=== PATIENT | male | born 1950 | race Caucasian/White ===

== ENCOUNTER → 2019-02-15 | Outpatient (CLI) | payer MEDICARE ==
--- NOTE | 2019-02-15 14:39 | CT ---
EXAMINATION TYPE: CT sinus w con DATE OF EXAM: 02/15/2019 COMPARISON: None HISTORY: Chronic sinusitis CT DLP: 655.4 mGycm Automated exposure control for dose reduction was used. CONTRAST: CT scan of the facial bones is performed with IV Contrast, patient injected with 80mL mL of Isovue 30 0. TECHNIQUE: CT scan of the sinuses is performed without contrast, axial images are obtained, coronal r eformatted images are also reviewed. FINDINGS: There is near complete opacification of the ethmoid air cells. Moderate to severe right-lopez ed mucosal thickening of the maxillary sinus and moderate left also thickening. Occlusion of the osti omeatal complex bilaterally. Moderate changes involving the sphenoid sinus and frontal sinus. No air- fluid levels. Intraorbital structures are symmetric. Visualized oropharynx and nasopharynx are symmetric. There is a nasal septal deviation. IMPRESSION: 1. Moderate to severe pansinusitis with most marked findings involving the ethmoid air cells.
== END ==
LOC: RADCTMAIN 13:30
PROVIDERS: ATTEND Physician Assistant
DX: J32.4 Chronic pansinusitis (principal)
CPT/HCPCS: 82565; 84520; 36415; 70487; Q9967

== ENCOUNTER 2019-05-01 09:24 | Day surgery (SDC) | payer MEDICARE ==
[2019-04-29 14:20] VITALS: BMI 30.5
[~2019-05-01 09:24] MED LIST: DEXAMETHASONE SOD PHOSPHATE 10 MG/ML 1 ML VIAL IV ONE; DEXAMETHASONE SOD PHOSPHATE 4 MG/ML 1 ML VIAL IV ONE; FAMOTIDINE 20 MG/2 ML VIAL IV ONE; LACTATED RINGERS 1,000 ML IV SCH; LIDOCAINE 1% 20 ML VIAL (10MG/ML) FOR IV START INTRADERMA PRN; ONDANSETRON 4 MG/2 ML VIAL IVP ONE
[2019-05-01] MEDS: OXYMETAZOLINE 0.05% NASL SPRAY 1 SPRAY BOTTLE NASAL ONE ×5 (09:58→10:23)
[2019-05-01] MEDS ORDERED: NEOSTIGMINE 1 MG/ML 10 ML VIAL ONE (10:44)
[2019-05-01] MEDS ORDERED: PROPOFOL 10 MG/ML 20 ML VIAL IV ONE (10:44)
[2019-05-01] MEDS ORDERED: fentaNYL (PF) 50 MCG/ML 2 ML AMP ONE (10:44)
[2019-05-01] MEDS ORDERED: ROCURONIUM BROMIDE 10 MG/ML 10 ML VIAL IV ONE (10:44)
[2019-05-01] MEDS ORDERED: LIDOCAINE 1% INJ 10MG/ML (20 ML MDV) ONE (10:44)
[2019-05-01] MEDS ORDERED: PHENYLEPHRINE-0.9% NACL SYG 1 MG/10 ML SYRINGE ONE (10:44)
[2019-05-01] MEDS ORDERED: MIDAZOLAM 2 MG/2 ML VIAL ONE (10:44)
[2019-05-01] MEDS ORDERED: GLYCOPYRROLATE 0.2 MG/ML 2 ML VIAL ONE (10:44)
[2019-05-01] MEDS ORDERED: BACITRACIN 500 UNIT/GM OINT 28.4 GM TUBE TOPICAL ONE ×2 (11:02→12:01)
[2019-05-01] MEDS ORDERED: LIDOCAINE 1%-EPI 1:100,000 20 ML VIAL SUBMUCOSAL ONE ×3 (11:02→11:08)
[2019-05-01] MEDS ORDERED: LACTATED RINGERS 1,000 ML IV ONE (11:37)
--- NOTE | 2019-05-01 12:18 | P.OP ---
Date of Procedure: 05/01/19 Preoperative Diagnosis: Deviated nasal septum Inferior turbinate hypertrophy Chronic sinusitis Postoperative Diagnosis: Same Procedure(s) Performed: Septoplasty Outfractured and submucous resection of the inferior turbinates Bilateral endoscopic sinus surgery including bilateral maxillary antrostomy with removal of tissue from the maxillary sinuses, bilateral anterior and posterior ethmoidectomy, bilateral balloon sinus plasty of the frontal and sphenoid sinuses with exploration Anesthesia: GENARO Surgeon: Glenroy Hoover Estimated Blood Loss (ml): 5 Pathology: other (Nasal septal bone and cartilage and sinus contents) Condition: stable Disposition: PACU Indications for Procedure: This 68-year-old white male whose had difficulties with chronic nasal airway obstruction congestion recurrent and chronic sinus with CT showing evidence of chronic sinusitis throughout his sinuses Operative Findings: Nasal septum deviated to the right with inferior turbinate hypertrophy bilaterally. Mucosal thickening throughout the ethmoid sinuses. Small polyps i n the maxillary sinuses which were removed. There was mucosal thickening in the frontal and sphenoid sinus bilateral also Description of Procedure: The patient was brought into the operative suite and placed in a supine position. The patient underwent induction of general anesthesia with oral endotracheal intubation without difficulty. The patient was prepped and draped in the usual aseptic fashion with the orbits in the operating field for monitoring to the case and the computed tomography scan was on the computer screen for review throughout the case. 1% lidocaine with 1 :100,000 epinephrine was infused submucosally into both sides of the nasal septum as well as the lateral nasal wall and anterior tips of the middle turbinates. While this was taking vasoconstrictive effect the inferior turbinates were infractured with Reeves elevator and partial submucous resection of the inferior turbinates was performed with a portion of the submucosal soft tissue and the inferior turbinate bone removed with Coblation device. The inferior turbinates were then outfractured with the Reeves elevator. A left hemitransfixion incision was then made with the mucoperichondrial and mucoperiosteal flap on the left elevated. The bony cartilaginous junction was disarticulated and the mucoperiosteal flap on the right was elevated. Bony nasal septal deformities were removed with Shawanda forceps and an inferior cartilaginous strip was removed leaving a full 1.5 cm caudal strut. Checking intranasally this corrected the nasoseptal deformities and the hemitransfixion incision was closed with a running 4-0 chromic suture. Full 0 endoscopic examination is performed bilaterally. Beginning on the left, the middle turbinate was medialized. The maxillary ostium was located with a ballpoint probe and an infundibulotomy was performed followed by uncinectomy. The maxillary antrostomy was enlarged at the expense of the anterior and posterior fontanelle taking care anteriorly not to injure the lacrimal bone. The maxillary sinus was evaluated with 30 and 70 endoscope .[Abnormal appearing tissue was removed from the maxillary sinus]. Anterior and posterior ethmoidectomy were then performed from anterior to posterior to the level of the skull base. The roof of the anterior ethmoid air cells were then cleaned from posterior to anterior using up-biting Blakesley forceps. A balloon sinuplasty of the frontal sinus was then performed using the entellus light guided technique . The frontal sinus was then explored with 30 endoscope. A balloon sinus plasty was then performed of the sphenoid sinus using entellus light guided technique . The sphenoid sinus was then explored with 0 endoscope.[Abnormal tissue was removed from the sphenoid sinus]. Attention was then turned to the right where the procedures were followed as they had been on the left. [Nasopore nasal dressing was placed in the middle meatus bilaterally under direct visualization]. Bilateral Kwan airway splints coated with bacitracin ointment were placed and sutured transseptally with a 4-0 nylon suture. The patient was suctioned in oral gastric fashion and was allowed to emerge from general anesthesia having tolerated procedure well and was extubated in the operating suite and transferred to the postoperative recovery area in satisfactory condition.
[2019-05-01 12:28] VITALS: TEMP 97.4
[2019-05-01] MEDS: HYDROmorphone 0.5 MG/0.5 ML SYRINGE IVP PRN ×4 (12:40→12:55)
[2019-05-01] MEDS ORDERED: fentaNYL (PF) 50 MCG/ML 2 ML AMP IVP ONE (13:08)
[2019-05-01 13:31] VITALS: RESP 20
[2019-05-01 13:45] VITALS: BP 128/87; PULSE 76
== END 2019-05-01 14:21 | disposition home or self-care (01) ==
LOC: OR 09:24
PROVIDERS: ATTEND Otolaryngology
DX: J34.2 Deviated nasal septum (principal); J34.3 Hypertrophy of nasal turbinates; J32.8 Other chronic sinusitis; I10 Essential (primary) hypertension; E78.5 Hyperlipidemia, unspecified; M19.90 Unspecified osteoarthritis, unspecified site; F41.9 Anxiety disorder, unspecified; F32.9 Major depressive disorder, single episode, unspecified; E78.00 Pure hypercholesterolemia, unspecified; Z85.46 Personal history of malignant neoplasm of prostate; Z79.899 Other long term (current) drug therapy; Z79.891 Long term (current) use of opiate analgesic; Z79.51 Long term (current) use of inhaled steroids; Z79.2 Long term (current) use of antibiotics; Z87.891 Personal history of nicotine dependence; Z92.3 Personal history of irradiation; Z92.21 Personal history of antineoplastic chemotherapy
CPT/HCPCS: 88305; 88300; 30520; 30140; 31267; 31298; 61782; C1726; J2250; J1100; J2710; J2405; J2001; J3010; J2370; J2704; J1170

== ENCOUNTER → 2019-06-17 | Outpatient (CLI) | payer MEDICARE ==
--- NOTE | 2019-06-17 16:59 | MR ---
EXAMINATION TYPE: MR brain and iac wo/w con DATE OF EXAM: 06/17/2019 COMPARISON: CT sinuses February 15, 2019 HISTORY: prev nasal surgery with drainage issues TECHNIQUE: Multiplanar, multisequence images of the brain and brainstem along with internal auditory canals are all performed without and with IV contrast, utilizing 11 mL intravenous Gadavist . FINDINGS: Diffusion weighted images demonstrate no evidence of a recent infarct or other diffusion ab normality. There is no worrisome extra-axial fluid collection. There is mild ventricular and sulcal prominence. Occasional tiny focus of T2 hyperintensity are scattered throughout the white matter bila terally. Midline structures demonstrate normal morphology. The craniocervical junction appears within normal limits. Post contrast images demonstrate no abnormal enhancement. The dural venous sinuses appear pa tent. There is mild to moderate mucosal thickening left frontal sinus slightly more prominent than pr ior sinus CT. Vkrt-bd-yffojerm mucosal thickening ethmoid sinuses bilaterally improved from prior CT, interval sinus surgery suspected. Mild to moderate mucosal thickening in the maxillary sinuses impro chloe from prior CT. Mild to minimal mucosal thickening bilateral sphenoid sinuses improved from prior CT. Some patchy fluid signal in the bilateral petrous apexes and right mastoid air cells. The vestibuloco chlear complexes are symmetric and felt within normal limits. No suspicious enhancing cerebellopontin e angle mass is identified bilaterally. IMPRESSION: 1. Possible mild right-sided mastoiditis and bilateral petrous apicitis, correlate clinically for poi nt tenderness at these levels bilaterally. 2. Improved paranasal sinus disease after interval surgery. Chronic changes remain present without ac susan sinusitis currently. 3. Mild diffuse age-related cerebral atrophy and mild to minimal chronic small vessel ischemic change is felt present.
== END | disposition home or self-care (01) ==
LOC: RADMRIMAIN 15:41
PROVIDERS: ATTEND Nurse Practitioner Family
DX: G31.1 Senile degeneration of brain, not elsewhere classified (principal); I67.82 Cerebral ischemia
CPT/HCPCS: 70553; A9585

== ENCOUNTER → 2020-08-12 | Outpatient (CLI) | payer MEDICARE ==
--- NOTE | 2020-08-12 12:22 | CONS ---
CONSULTATION DATE OF SERVICE: 08/12/2020 A 69-year-old gentleman had been evaluated [facility] for possible obstructive sleep apnea-hypopnea syndrome. HISTORY OF PRESENT ILLNESS/SLEEP-WAKE EVALUATION: Patient's usual sleep schedule from 10 or 11 p.m. until 3 to 4 a.m. Sometimes he has problems with falling asleep, although no TV in bedroom. He usually sleeps on the side position. The patient sleeps by himself so no clear information about snoring and breathing during the sleep. No history of hypnagogic hallucinations, sleep paralysis or cataplexy. The patient takes one nap around 2 to 3 p.m., does not feel refreshed after nap. Does not seem any vivid dream during naps. [place] Sleepiness Scale is 7. PAST MEDICAL HISTORY: Positive for prostate CA, status post prostatectomy in 2007 and several years after that radiation therapy presently PSA in very low range; hypertension, arthritis, headaches, possible COVID-19 in 2018. PAST SURGICAL HISTORY: Prostatectomy, bilateral surgery for rotator cuff, for the fracture of right hip, nasal surgery for sinus problem in May 2019. SOCIAL HISTORY: Smoked about a half pack a day for 30 years. Alcohol consumption none. MEDICATIONS: Atorvastatin 40 mg once a day, venlafaxine 75 mg once a day, enalapril 10-25 once a day, trazodone 50 mg once a day, hydrocodone 1-2 on p.r.n. basis for the pain. FAMILY HISTORY: Hypertension. REVIEW OF SYSTEMS: Feeling tiredness and sleepiness during the day, sexual dysfunction, and sometimes a urine leak. No fevers. No double vision. No recent chest pain. No shortness of breath. No abdominal pain. No bleeding episodes. No blood in the urine. No seizure episodes. PHYSICAL EXAMINATION: GENERAL: A gentleman without distress. VITAL SIGNS: BP 139/84, HR 74, RR 12, height 6 feet 2-1/2 inches, weight 250 pounds, body mass index 31.6, temperature 97.5, oxygen saturation at room air 96%. HEENT: PERRLA, EOMI. Oropharynx wide pillars, big uvula. Position of soft palate around 2, but small oropharyngeal air space, wide neck 18 inches in circumference. NECK: Wide neck, 18 inches in circumference. LUNGS: Clear to percussion and to auscultation. Good air exchange. No wheezing or rhonchi. HEART: S1, S2 regular. No murmurs, gallops, or rubs. ABDOMEN: Slightly obese. EXTREMITIES: No clubbing or cyanosis. CASING TESTER: Awake, alert, and oriented X3. Cranial nerves 2 to 7 intact. There is no fasciculation or atrophy. noted. No focal deficits observed. IMPRESSION: 1. Tiredness and sleepiness during the day. Small oropharyngeal air space, wide neck. The patient sleeps by himself no information about snoring, obstructive sleep apnea-hypopnea syndrome. 2. Body mass index 31.6. 3. Hypertension. 4. Hyperlipidemia. 5. History of prostate cancer, status post prostatectomy and later radiation therapy. 6. Smoker for about 20 pack years. 7. Status post bilateral surgery for rotator cuff problems. 8. Status post nasal surgery for sinusitis. 9. Status post possible COVID-19 pneumonia in 2019 with absence of taste and smell. 10.Insomnia with difficulties to initiate sleep psychophysiological and also possibly secondary to depression. 11.Sexual dysfunction. PLAN: 1. Polysomnography for evaluation of patient's breathing during sleep. 2. CPAP/BiPAP titration if sleep study confirms obstructive sleep apnea-hypopnea syndrome. 3. Preferable position during sleep on the side. 4. No driving if patient feels any sleepiness. 5. I will see patient for follow up visit to explain results of testing and following plan. Thank you very much for referring this patient for consultation. Sincerely, Nikolai Culp MD, PhD, FAASM Diplomat of [employer] [facility] MMODL / IJN: [id number] /
== END ==
LOC: SLEEP 09:58
PROVIDERS: ATTEND Internal Medicine
DX: G47.33 Obstructive sleep apnea (adult) (pediatric) (principal); E78.5 Hyperlipidemia, unspecified; N53.9 Unspecified male sexual dysfunction; I10 Essential (primary) hypertension; Z85.46 Personal history of malignant neoplasm of prostate; Z90.79 Acquired absence of other genital organ(s); Z98.890 Other specified postprocedural states; Z68.31 Body mass index [BMI] 31.0-31.9, adult
CPT/HCPCS: 99211

== ENCOUNTER → 2022-11-24 | Outpatient (CLI) | payer MEDICARE ==
--- NOTE | 2022-11-24 08:40 | CTL ---
EXAMINATION TYPE: CT Low Dose Lung DATE OF EXAM ORDERED: 11/24/2022 HISTORY: Z12.2 ,F17.210 NICOTINE DEPENDENCE, CIGARETTES, UN. Current smoker, 55 pack year history. Rabia ng cancer screening CT DLP: 89.[address] CTDI: 2.4 mGy Automated exposure control for dose reduction was used. SCREENING VISIT: First screening visit COMPARISON: None TECHNIQUE: Low dose computed tomography scan was performed through the chest at 1 mm thick sections a nd reconstructed images in multiple planes at 1 mm and [address] DIAGNOSTIC QUALITY: Satisfactory FINDINGS: LUNG NODULES: 4 mm nodule along the left major fissure which may represent an intrafissural lymph nod e (series 4, image 134). Additional 3 mm nodule along the left major fissure which may represent an i ntrafissural lymph node (series 4, image 171). Left lateral lower lobe 3 mm pulmonary nodule (series 4, image 211). 3 mm nodule along the right minor fissure which may represent an intrafissural lymph n ode (series 4, image 178). Additional 4 mm nodule along the right major fissure which may represent i ntrafissural lymph node (series 4, image 148). LUNGS: COPD: Severity: Mild Fibrosis: Severity: None Lymph nodes: None Other findings: None RIGHT PLEURAL SPACE: Effusion: None Calcification: None Thickening: None Pneumothorax: None LEFT PLEURAL SPACE: Effusion: None Calcification: None Thickening: None Pneumothorax: None HEART: Heart Size: Normal Coronary Calcification: Moderate Pericardial Effusion: None OTHER FINDINGS: Upper abdomen: None Bony thorax: None Supraclavicular region: None Other: None IMPRESSION: Few nodules measuring up to 4 mm. A few of these may represent intrafissural lymph nodes. CT LUNG RAD AND CT CHEST RECOMMENDATION: Lung-Rad 2 Benign Appearance or Behavior: Continue annual sc reening with LDCT in 12 months. S Modifier (other clinically significant findings): None
== END | disposition home or self-care (01) ==
LOC: RADCTMAIN 08:00
PROVIDERS: ATTEND Family Medicine
DX: Z12.2 Encounter for screening for malignant neoplasm of respiratory organs (principal); F17.210 Nicotine dependence, cigarettes, uncomplicated; R91.8 Other nonspecific abnormal finding of lung field
CPT/HCPCS: 71271

== ENCOUNTER → 2024-09-19 | Outpatient (CLI) | payer MEDICARE ==
--- NOTE | 2024-09-19 11:33 | CT ---
EXAMINATION TYPE: CT right knee - SHARMAINE Protocol DATE OF EXAM: 09/19/2024 10:56 AM COMPARISON: None. CLINICAL INDICATION: Male, 74 years old with history of M17.11 UNILATERAL PRIMARY OSTEOARTHRITIS, RIG HT KN; PHH, pre-op right total knee, pain, TECHNIQUE: Axial images were obtained of the bilateral hips, knee and bilateral ankles: CT right kne e - SHARMAINE Protocol, Additional coronal and sagittal reformatted images and soft tissue and bone window were obtained for review of the bilateral hips, knee and bilateral ankles. Contrast used: mL of , (None if empty) Oral contrast used: (None if empty) CT DLP: 666 mGycm, Automated exposure control for dose reduction was used. FINDINGS: The visualized portion of the hips demonstrate mild osteoarthrosis changes with osteophyte formation of the acetabulum. No acute intrapelvic process. The bony structures of the pelvis are intact. The visualized knee demonstrates osteophyte formation of the tibial plateau, the patella and femoral condyles. There is joint space narrowing and subchondral sclerosis worse in the medial joint compart ment. No evidence of fracture. The visualized ankles demonstrates multifocal osteoarthrosis changes with osteophyte formation and mi ld joint space narrowing. No evidence of fractures. Other: Surgical changes of the prostate gland with prostatectomy. IMPRESSION: Moderate osteoarthrosis changes of the knee. [facility], , 09/19/2024 11:31 AM
== END | disposition home or self-care (01) ==
LOC: RADCTMAIN 10:25
PROVIDERS: ATTEND Orthopaedic Surgery
DX: Z01.818 Encounter for other preprocedural examination (principal); M17.11 Unilateral primary osteoarthritis, right knee

== ENCOUNTER → 2024-10-08 | Outpatient (CLI) | payer MEDICARE ==
--- NOTE | 2024-10-08 15:16 | CTL ---
EXAMINATION TYPE: CT Low Dose Lung DATE OF EXAM: 10/08/2024 9:04 AM COMPARISON: 11/24/2022. CLINICAL INDICATION: Male, 74 years old with history of Z12.2, F17.210 NICOTINE DEPENDENCE, CIGARETTE S, UN; current smoker, 1 pack a day for 40 years, history of tobacco use. TECHNIQUE: Multiple axial non-contrast scans were obtained from approximately the lung apices through the upper abdomen. Coronal and sagittal reformatted images were obtained. Low dose technique was uti lized. MIP were created on a separate workstation and submitted for review. CT DLP: 97.2 mGycm, Automated exposure control for dose reduction was used. CT Contrast: Contrast used: None Oral contrast used: None FINDINGS: Lack of intravenous contrast and low dose technique limits the evaluation of the vascular and soft ti ssue structures. LUNGS: No evidence of pulmonary fibrosis. No evidence of focal consolidation, pneumothorax or pleural effusion. Centrilobular emphysema changes. Nodules: RUL: None. RML: None. RLL: None. STEPHANE: None. LLL: 3 mm series 5 image 45; intrafissural lymph node image 28. AIRWAY: Patent and unremarkable. HEART: Size within normal limits. Moderate coronary artery calcifications present. MEDIASTINUM: No gross evidence of adenopathy. VASCULATURE: No aortic aneurysm. MUSCULOSKELETAL: No acute osseous abnormalities SOFT TISSUES/LYMPH NODES: Unremarkable. LOWER NECK: No significant findings. UPPER ABDOMEN: No significant findings. IMPRESSION: 1. No clinically significant pulmonary nodules. 2. Mild emphysema. CT LUNG RAD AND CT CHEST RECOMMENDATION: Lung-Rad 2 Benign Appearance or Behavior: Continue annual sc reening with LDCT in 12 months. S Modifier (other clinically significant findings): None Recommend smoking cessation (if current smoker), or continuation of smoking cessation (if prior smoke r). Annual screening for lung cancer with low-dose computed tomography is recommended in adults ages 55 to 77 years who have a 30 pack-year smoking history and currently smoke or have quit within the pa st 15 years. Screening should be discontinued once a person has not smoked for 15 years or develops a health problem that substantially limits life expectancy or the ability or willingness to have curat srini lung surgery. Lung rads 2021 [email or web address] [facility], , 10/08/2024 3:14 PM
== END | disposition home or self-care (01) ==
LOC: RADCTMAIN 08:41
PROVIDERS: ATTEND Family Medicine
DX: Z12.2 Encounter for screening for malignant neoplasm of respiratory organs (principal); F17.210 Nicotine dependence, cigarettes, uncomplicated; J43.2 Centrilobular emphysema
CPT/HCPCS: 71271

== ENCOUNTER 2024-10-22 05:33 | Day surgery (SDC) | payer MEDICARE ==
[2024-10-17 15:23] VITALS: BMI 30.5
[2024-10-22] MEDS ORDERED: TRANEXAMIC 1,000 MG/100ML-NACL 1,000 MG in SALINE 1 100ML.BAG IV PRN (06:00)
[2024-10-22] MEDS ORDERED: ONDANSETRON 4 MG/2 ML VIAL IVP PRN ×2 (06:00→08:55)
[2024-10-22] MEDS ORDERED: TRANEXAMIC 1,000 MG/100ML-NACL 1,000 MG in SALINE 1 100ML.BAG IVPB PRN (06:00)
[2024-10-22] MEDS ORDERED: oxyCODONE ER 10 MG TAB.ER.12H PO PRN (06:00)
[2024-10-22] MEDS: DOCUSATE 100 MG CAP PO PRN (06:03)
[2024-10-22] MEDS: ACETAMINOPHEN TAB 500 MG TAB PO PRN (06:03)
[2024-10-22] MEDS: IV FLUID CONTINUATION 1,000 ML IV ONE ×2 (06:30→10:15)
[2024-10-22] MEDS: LACTATED RINGERS 1,000 ML IV SCH (06:30)
[2024-10-22] MEDS: FAMOTIDINE 20 MG/2 ML VIAL IVP PRN (06:31)
[2024-10-22] MEDS: ONDANSETRON 4 MG/2 ML VIAL IVP ONE (06:31)
[2024-10-22] MEDS: KETOROLAC 15 MG/ML 1 ML VIAL IVP PRN (06:31)
[2024-10-22] MEDS: MIDAZOLAM 2 MG/2 ML VIAL IV ONE (06:32)
[2024-10-22] MEDS: DEXAMETHASONE SOD PHOSPHATE 10 MG/ML 1 ML VIAL IV PRN (06:41)
[2024-10-22] MEDS: VANCOMYCIN 1,500 MG in SODIUM CHLORIDE 0.9% 500 ML 500 ML IVPB PRN (06:47)
[2024-10-22] MEDS: fentaNYL (PF) 50 MCG/ML 2 ML AMP IVP STA (06:49)
[2024-10-22] MEDS ORDERED: ALBUTEROL HFA INHALER INHALATION ONE (07:06)
[2024-10-22] MEDS ORDERED: PROPOFOL 10 MG/ML 20 ML VIAL IV ONE (07:06)
[2024-10-22] MEDS ORDERED: ROCURONIUM 10 MG/ML (5 ML VIAL) IV ONE (07:06)
[2024-10-22] MEDS ORDERED: TRANEXAMIC 1,000 MG/100ML-NACL PREMIX BAG ONE (07:06)
[2024-10-22] MEDS ORDERED: PHENYLEPHRINE-0.9% NACL SYG 1,000 MCG/10 ML SYRINGE ONE (07:06)
[2024-10-22] MEDS ORDERED: ROPIVACAINE 5 MG/ML 30 ML VIAL ONE (07:06)
[2024-10-22] MEDS ORDERED: DEXAMETHASONE SOD PHOSPHATE 4 MG/ML 1 ML VIAL ONE (07:06)
[2024-10-22] MEDS ORDERED: ePHEDrine 50 MG/ML 1 ML VIAL ONE (07:06)
[2024-10-22] MEDS ORDERED: LIDOCAINE 1% INJ 10MG/ML (20 ML MDV) ONE (07:06)
[2024-10-22] MEDS ORDERED: GLYCOPYRROLATE 0.2 MG/ML 2 ML VIAL ONE (07:06)
[2024-10-22] MEDS ORDERED: VASOPRESSIN 20 UNIT/ML 1 ML VIAL ONE (07:06)
[2024-10-22] MEDS ORDERED: NEOSTIGMINE 1 MG/ML 10 ML VIAL ONE (07:06)
[2024-10-22] MEDS ORDERED: SUCCINYLCHOLINE CHLORIDE 200 MG/10 ML VIAL IV ONE (07:06)
[2024-10-22] MEDS ORDERED: HYDROmorphone (PF) 1 MG/ML ONE (07:06)
--- NOTE | 2024-10-22 07:52 | P.ANPRN ---
Procedure Note - Anesthesia - Nerve Block Performed Right iPack Single Time Out Performed: Yes Date of Procedure: 10/22/24 Procedure Start Time: 06:32 Procedure Stop Time: 06:37 Location of Patient: PreOp Indication: Acute Post-Operative Pain, Analgesia, Requested by Surgeon Sedation Type: Sedate with meaningful contact maintained Preparation: Sterile Prep Position: Left Lateral Catheter: None Needle Types: Pajunk Needle Gauge: 21 Ultrasound used to visualize needle placement: Yes Ultrasound used to observe medication spread: Yes Injectate: 0.5% Ropivacaine (see comment for volume) ([id number]) Blood Aspirated: No Pain Paresthesia on Injection Noted: No Resistance on Injection: Normal Image Stored and Saved: Yes Events: Uneventful and Well Tolerated
--- NOTE | 2024-10-22 07:53 | P.ANPRN ---
Procedure Note - Anesthesia - Nerve Block Performed Right Adductor Canal Single Time Out Performed: Yes Date of Procedure: 10/22/24 Procedure Start Time: :37 Procedure Stop Time: 06:42 Location of Patient: PreOp Indication: Acute Post-Operative Pain, Analgesia, Requested by Surgeon Sedation Type: Sedate with meaningful contact maintained Preparation: Sterile Prep Position: Supine Catheter: None Needle Types: Pajunk Needle Gauge: 21 Ultrasound used to visualize needle placement: Yes Ultrasound used to observe medication spread: Yes Injectate: 0.5% Ropivacaine (see comment for volume) ([id number]) Blood Aspirated: No Pain Paresthesia on Injection Noted: No Resistance on Injection: Normal Image Stored and Saved: Yes Events: Uneventful and Well Tolerated
[2024-10-22] MEDS: ROPIVACAINE/EPI/CLONIDINE/KET 50 ML SYRINGE MISCELLANE PRN (08:28)
[2024-10-22] MEDS ORDERED: MAGNESIUM HYDROXIDE 2,400 MG/30 ML CUP PO PRN (08:55)
[2024-10-22] MEDS ORDERED: diazePAM 5 MG TAB PO PRN ×2 (08:55)
[2024-10-22] MEDS ORDERED: HYDROmorphone 0.5 MG/0.5 ML SYRINGE IVP PRN ×2 (08:55)
[2024-10-22] MEDS ORDERED: TEMAZEPAM 15 MG CAP PO PRN ×2 (08:55→22:00)
[2024-10-22] MEDS ORDERED: NALOXONE 0.4 MG/ML 1 ML VIAL IV PRN (08:55)
[2024-10-22] MEDS ORDERED: NA PHOS,M-B/NA PHOS,DI-BA 133 ML ENEMA RECTAL PRN (08:55)
[2024-10-22] MEDS ORDERED: HYDROcodone/APAP 5-325MG 1 EACH TAB PO PRN (08:55)
--- NOTE | 2024-10-22 08:55 | P.OP ---
Date of Procedure: 10/22/24 Preoperative Diagnosis: 1. Right knee medial compartment arthritis 2. History of former smoking, patient states he quit prior to surgery Postoperative Diagnosis: Same Procedure(s) Performed: 1. Right knee medial uni-compartmental arthroplasty 2. Computer assisted musculoskeletal navigation using CT/MRI images Implants: 1. [place] M[employer] Restoris Size 5 Femoral component, medial 2. [place] [employer] Restoris Size 5, ONLAY tibial baseplate 3. Sen X3 Uni tibial insert, Size 5, 8-mm Anesthesia: GETA Surgeon: David Johnson Shearing Machine Feeder #1: Anthony Hussein Estimated Blood Loss (ml): 100 IV fluids (ml): 800 Pathology: none sent Condition: stable Disposition: PACU Indications for Procedure: I been seeing the patient in the office for right knee pain. His x-rays, MRI, and exam were consistent with severe isolated medial compartment arthritis. The patient failed nonsurgical treatment and requested going forward with surgery. I had a long discussion with the patient and different options including partial versus total knee replacement. We had a long discussion on the pros and cons of both. We elected to proceed with a medial unicompartmental versus total knee arthroplasty depending on the appearance of his joint during surgery. The patient also has a history of smoking. In the office prior to surgery the patient agreed to quit smoking and at his last appointment with me told me that he had in fact quit smoking. This morning prior to surgery the patient states that he has been occasionally smoking but has cut down. We discussed delaying the surgery versus proceeding. The patient requests proceeding with surgery. He understands that he is at an elevated risk of infection and delayed wound healing. He was strongly encouraged to refrain from smoking in the perioperative period. I met with the patient preoperatively in the office setting and discussed treatment of their symptomatic knee arthritis. The patient has isolated pain over the medial compartment and has imaging confirming isolated medial compartment arthritis. We discussed the pros and cons of a partial versus total knee replacement. Based on the patient's imaging and clinical exam I think that there are good candidate for a partial medial knee replacement. We discussed the benefits of this compared to conventional total knee replacement including faster recovery and a more normal feeling knee. We discussed the limitations in a partial knee replacement particularly progression of arthritis in the patellofemoral and lateral compartment. The patient understood this and agreed to proceed with a partial knee replacement. I discussed the potential risks and complications at length and gave them ample time to ask questions. Risks discussed included: risks from anesthesia, superficial site surgical infection, acute and/or chronic periprosthetic joint infection, delayed wound healing, drainage, wound necrosis, instability, stiffness, stiffness requiring manipulation and/or revision surgery, progression of arthritis in the patellofemoral and lateral compartment, damage to local blood vessels or nerves, aseptic loosening of the implants, extensor mechanism issues including disruption, patellar maltracking, avascular necrosis etc., continued or worsened knee pain, generalized dissatisfaction with surgical outcome, need for revision surgery, an inability to regain preinjury level of function, DVT, PE, other medical complications, and possibly loss of life or limb. The patient voiced their understanding that while these are the most common complications other less common complications are possible. They provided both their verbal and written consent to go forward with surgery. Operative Findings: Isolated full-thickness cartilage loss on the medial femoral condyle and tibial plateau. The undersurface of the patella common femoral trochlea, and lateral compartment were free of arthritic changes. The ACL was probed and found to be intact intraoperatively. Description of Procedure: The patient was identified in preoperative holding and the correct operative extremity was verified and marked with a marker. I reviewed the consent form with the patient at length. All of their questions were answered. The patient was given a block by anesthesia. They were then brought back to the operating room. They were transferred onto the operating room table where a general anesthetic, preoperative antibiotics, and tranexamic acid were administered by anesthesia. A tourniquet was applied to the proximal aspect of the operative extremity. The contralateral extremity was padded under the heel and secured to the operating room table with a nonsterile blue towel and tape. The ipsilateral arm was carefully draped across the patient's chest and secured with a pillow and foam. A post was applied over the lateral aspect of the ipsilateral thigh and a bolster was placed under the ipsilateral foot. I verified that the oper ative extremity was stable and the knee was flexed to 90. The operative extremity was then placed in a leg contreras, nonsterile drapes were applied, and the extremity was prepped and draped sterilely in the standard sterile fashion. Prior to starting surgery timeout was performed identifying the correct patient, operative extremity, and procedure. The leg was then elevated, exsanguinated with an Esmarch bandage, and the tourniquet was inflated. An anterior midline incision was made sharply with a scalpel. Once I had dissected deep to the superficial fascial layer medial and lateral flaps were elevated. A medial parapatellar arthrotomy was created taking care to not inadvertently damaged cartilage in the femoral trochlea since a partial medial compartmental arthroplasty was anticipated. Upon opening the knee joint there was severe arthritic changes in the medial compartment, but the patellofemoral and lateral compartment were free from arthritic changes. Having confirmed isolated medial compartment arthritis I proceeded to perform a partial medial compartment arthroplasty. The anterior horn of the medial meniscus was sharply released and a limited medial release was performed around the posterior medial corner of the knee to facilitate retractor placement. A small portion of the fat pad was excised with electrocautery just to allow visualization. The ACL and PCL were probed and found to be intact. 4 mm pins were then placed within the incision in the medial distal femur and proximal tibia. Arrays were applied to the pins and I verified they were completely tightened. The knee was then registered with the [employer] robot and manipulations in implant position were made to balance the knee and opitmize implant position. Using the [employer] robotic saw and jocelyn all cuts were made in accordance with our plan. All bony fragments were removed. Local anesthetic was then infiltrated around the joint capsule. Trial implants were then placed within the knee. Range of motion and collateral ligament tension was then evaluated. Once the knee was felt to be appropriately balanced the Sen pins were removed. With the trial components in place, the patella tracked midline. All trial components were then removed from the knee. The knee was thoroughly irrigated with pulsatile lavage. Cement was prepared via vacuum mixing in a bowl on the back table. I then hand pressurized cement into the femur and tibia and placed the implants beginning with the tibial base tray, femoral component, and finally the poly liner. All extruded cement was removed including from the pin sites. Once the cement had hardened the knee was evaluated one final time with the final polyethylene liner in place. The knee had full extension and flexion and felt stable to varus and valgus stress throughout the arc of motion. The tourniquet was released and with the tourniquet down the patella tracked midline. All bleeders were controlled with electrocautery. The knee was thoroughly irrigated using 3 L of sterile saline and pulsatile lavage. The extensor mechanism was then reapproximated using pop off Vicryl sutures followed by a running barbed suture. The knee was then closed in layers with a 0 strata fix for the deep fascial layer, 2-0 strata fix for the superficial subcutaneous layer and Monocryl and Steri-Strips for the skin. A sterile dressing was applied. I verified that all instrument, sponge, and sharp counts were correct. The patient was then transferred off the operating room table, extubated, and brought to recovery having tolerated the procedure well. Anthnoy Hussein PA-C was required as a skilled legal executive assistant due to the complexity of surgery for patient positioning, draping, exposure, retraction, closure of wound and application of dressing. PLAN: The patient can weight-bear as tolerated on the operative extremity. DVT prophylaxis with aspirin 81 mg twice a day based on preoperative risk stratification. The patient is going to attempt to leave as an outpatient. They can be discharged as long as they passed physical therapy and her pain is controlled. Follow-up in the office in 2 weeks for wound check and x-rays of the knee including an AP and lateral.
--- NOTE | 2024-10-22 09:55 | XR ---
EXAMINATION TYPE: XR knee limited RT DATE OF EXAM: 10/22/2024 9:48 AM COMPARISON: 08/24/2023 CLINICAL INDICATION: Male, 74 years old with history of Evaluation for Postop abnormality and alignme nt; PHH, pain TECHNIQUE: 2 views FINDINGS: Postsurgical change of unicompartmental arthroplasty with placement of medial femoral and m edial tibial components. The components appear well-seated without periprosthetic fracture. Fixator s crew tracts are noted medially. No discrete fracture is seen. Anterior soft tissue swelling with scat tered soft tissue air as well as intra-articular air related to recent operation. Gross anatomic alig nment. IMPRESSION: Uncomplicated postoperative appearance medial unicompartmental arthroplasty. [facility], , 10/22/2024 9:53 AM
[2024-10-22] MEDS: HYDROmorphone 0.5 MG/0.5 ML SYRINGE IVP PRN ×2 (10:01→16:54)
[2024-10-22] MEDS: HYDROcodone/APAP 10-325MG 1 EACH TAB PO PRN (12:12)
[2024-10-22] MEDS: DEXAMETHASONE SOD PHOSPHATE 4 MG/ML 1 ML VIAL IV ONE (13:54)
[2024-10-22] MEDS: SODIUM CHLORIDE 0.9% 1,000 ML IV SCH (13:55)
[2024-10-22] MEDS: SENNOSIDES-DOCUSATE SODIUM 1 EACH TAB PO SCH (20:06)
[2024-10-22] MEDS: ASPIRIN 81 MG PO SCH (20:07)
[2024-10-23 02:13] VITALS: RESP 18
[2024-10-23 07:42] VITALS: BP 124/69; PULSE 56; TEMP 98.2
--- NOTE | 2024-10-23 07:44 | P.DS ---
Providers Attending physician: David Johnson Primary care physician: [facility] Course: The patient is a very pleasant 74-year-old male that underwent a right partial knee replacement yesterday. He was initially scheduled to go home as an outpatient but was unsteady with therapy and kept overnight for observation. This morning he is doing well. His pain is controlled. He says his knee feels somewhat unsteady when he stands on it but otherwise is doing well. His d ressing is intact. Motor and sensory function are intact in the right leg. We will plan on discharge home later today pending evaluation by physical therapy. Patient Condition at Discharge: Good Plan - Discharge Summary Discharge Rx Participant: No New Discharge Prescriptions: New HYDROcodone/APAP 10-325MG [Magnolia 10-325] 1 tab PO Q4HR PRN 3 Days #18 tab PRN Reason: Pain Doxycycline Monohydrate 100 mg PO BID #28 cap Celecoxib [CeleBREX] 200 mg PO BID #60 cap No Action traZODone HCL 50 mg PO HS Enalapril/Hydrochlorothiazide [Enalapril-Hctz 10-25 mg Tablet] 1 tab PO HS Atorvastatin [Lipitor] 40 mg PO HS Venlafaxine HCl [Effexor XR] 75 mg PO HS Acai Chong Extract [Acai] 500 mg PO DAILY Ibuprofen [Motrin] 400 mg PO Q6HR PRN #16 tab PRN Reason: Pain HYDROcodone/APAP 5-325MG [Magnolia 5-325] 1 - 2 tab PO Q6HR PRN PRN Reason: Pain Discharge Medication List Acai Chong Extract [Acai] 500 mg PO DAILY 04/29/19 [History] Atorvastatin [Lipitor] 40 mg PO HS 04/29/19 [History] Enalapril/Hydrochlorothiazide [Enalapril-Hctz 10-25 mg Tablet] 1 tab PO HS 04/29/19 [History] Venlafaxine HCl [Effexor XR] 75 mg PO HS 04/29/19 [History] traZODone HCL 50 mg PO HS 04/29/19 [History] Ibuprofen [Motrin] 400 mg PO Q6HR PRN #16 tab 08/24/23 [Rx] HYDROcodone/APAP 5-325MG [Magnolia 5-325] 1 - 2 tab PO Q6HR PRN 10/17/24 [History] Celecoxib [CeleBREX] 200 mg PO BID #60 cap 10/22/24 [Rx] Doxycycline Monohydrate 100 mg PO BID #28 cap 10/22/24 [Rx] HYDROcodone/APAP 10-325MG [Magnolia 10-325] 1 tab PO Q4HR PRN 3 Days #18 tab 10/22/24 [Rx] Follow up Appointment(s)/Referral(s): David Johnson MD [Medical Doctor] - 11/07/24 9:10 am Patient Instructions/Handouts: *Surgery [facility] - (Anesthesia) Discharge Instructions Outpatient Surgery, Surgical Site Infections (DC) Activity/Diet/Wound Care/Special Instructions: 1. Weight-bear as tolerated on your operative extremity unless instructed otherwise. Use a walker or other assistive device to ambulate. 2. Leave surgical dressing in place. If your dressing becomes saturated with blood, there is drainage, or the dressing becomes loose please contact the office. 3. It is okay to shower with your surgical dressing, but do not submerge in water (no hot tubs, bath's, swimming etc.) 4. Make sure to take her blood clot prevention medication as prescribed (aspirin, Eliquis, Xarelto, and Plavix are commonly prescribed medications for blood clot prevention) 5. While taking Magnolia or Percocet for pain make sure you're taking a stool softener (Colace) and drink lots of water. 6. Keep all follow-up appointments as scheduled. You will usually be seen in 1-2 weeks following surgery. 7. Please contact the office with any questions or concerns [phone] Discharge Disposition: HOME WITH HOME HEALTH SERVICES
[2024-10-23 10:39] LABS: Basophils # (A) 0.02 X 10*3/uL (0.00-0.10); Basophils % (A) 0.1 %; Eosinophils # (A) 0 X 10*3/uL (0.04-0.35); Eosinophils % (A) 0 %; HCT 43.3 % (39.6-50.0); HGB 14.5 g/dL (13.0-17.0); Immature Grans, Automated 0.30 %; Lymphocytes # (A) 1.04 X 10*3/uL (0.90-5.00); Lymphocytes % (A) 5.1 %; MCH 30.3 pg (27.0-32.0); MCHC 33.5 g/dL (32.0-37.0); MCV 90.6 FL (80.0-97.0); Monocytes # (A) 1.42 X 10*3/uL (0.20-1.00); Monocytes % (A) 6.9 %; NRBC Per 100 WBC 0 X 10*3/uL (0.00-0.01); Neutrophils # (A) 17.98 X 10*3/uL (1.80-7.70); Neutrophils % (A) 87.6 %; Platelet Count 224 X 10*3/uL (140-440); RBC 4.78 X 10*6/uL (4.40-5.60); RDW 13.2 % (11.5-14.5); WBC 20.53 X 10*3/uL (4.50-10.00)
[2024-10-23] MEDS ORDERED: MULTIVITAMINS, THERA 1 EACH TAB PO SCH (12:00)
== END 2024-10-23 10:13 | disposition home health service (06) ==
LOC: OR 05:33 → 4SSUR 09:10 → OR 10-23 10:13
PROVIDERS: ATTEND Orthopaedic Surgery
DX: M17.11 Unilateral primary osteoarthritis, right knee (principal); G89.18 Other acute postprocedural pain; I10 Essential (primary) hypertension; E11.9 Type 2 diabetes mellitus without complications; E78.5 Hyperlipidemia, unspecified; G47.33 Obstructive sleep apnea (adult) (pediatric); J44.9 Chronic obstructive pulmonary disease, unspecified; N40.0 Benign prostatic hyperplasia without lower urinary tract symptoms; F17.210 Nicotine dependence, cigarettes, uncomplicated; Z79.1 Long term (current) use of non-steroidal anti-inflammatories (NSAID); Z79.890 Hormone replacement therapy; Z79.891 Long term (current) use of opiate analgesic; Z79.899 Other long term (current) drug therapy; Z85.46 Personal history of malignant neoplasm of prostate
CPT/HCPCS: 0055T; 27446; 64447; 64473; 85025